=== PATIENT | female | born 1925 | race Caucasian/White ===

== ENCOUNTER 2016-07-18 19:13 | Inpatient (IN) | payer OTHER, MEDICARE ==
--- NOTE | 2016-07-18 20:03 | EDPHY ---
H & P Time Seen by Provider: 07/18/16 19:46 HPI/ROS: Chief complaint. Rectal bleeding HPI. 89-year-old female history of diverticular bleeding presents with copious rectal bleeding that began at 6:30 a.m. tonight. The last few days she has had some left lower quadrant crampy abdominal pain. No fever nausea or vomiting. Patient's son shows me a photo of copious blood bright red blood in the toilet tonight. ROS Constitutional. no fever/chills, no weakness Eyes. no problems with vision ENT. no sore throat, no nasal drainage Cardiovascular. no chest pain Respiratory. no shortness of breath, no cough Abdominal. Abdominal pain and rectal bleeding . no problems urinating MS. no calf pain/swelling, no neck/back pain, no joint pain Skin. no rash Lymph. no swollen glands Neuro. no headache, no dizziness, no difficulty walking or with speech Past Medical/Surgical History: Diverticulitis, hypertension, mastectomy, cataract surgery, GI bleed Social History: nonsmoker no alcohol Smoking Status: Never smoked Physical Exam: General Appearance: Alert well-developed female mild distress vital signs are stable Eyes: Pupils equal and round no pallor or injection. ENT, Mouth: Mucous membranes are moist. Respiratory: There are no retractions, lungs are clear to auscultation. Cardiovascular: Regular rate and rhythm. Gastrointestinal: Abdomen is soft and nontender, no masses, bowel sounds normal. Neurological: Awake and alert, sensory and motor exams grossly normal. Skin: Warm and dry, no rashes. Musculoskeletal: Neck is supple nontender. Extremities symmetrical, full range of motion. Psychiatric: Patient is oriented X 3, there is no agitation. Constitutional: Initial Vital Signs Temperature (C) 36.3 C 07/18/16 19:23 Heart Rate 92 07/18/16 19:23 Respiratory Rate 18 07/18/16 19:23 Blood Pressure 148/89 H 07/18/16 19:23 O2 Sat (%) 91 L 07/18/16 19:23 O2 Delivery Mode Room Air Allergies/Adverse Reactions: codeine [Codeine] Allergy (Unknown, Verified 06/20/13 15:36) Penicillins Allergy (Unknown, Verified 06/20/13 15:36) Home Medications: Medication Instructions Recorded Aspirin EC [Aspirin EC 81 mg (*)] 81 mg PO DAILY 07/18/16 Cholecalciferol Vit D3 [Vitamin D3 2,000 units PO DAILY 07/18/16 (*)] Hydrochlorothiazide [HCTZ (*)] 25 mg PO DAILY 07/18/16 Losartan Potassium [Cozaar 50 mg 50 mg PO DAILY 07/18/16 (*)] Magnesium Oxide [Magnesium Oxide 400 mg PO FR 07/18/16 400 mg (*)] Simvastatin [Zocor] 20 mg PO HS 07/18/16 Medical Decision Making - Diagnostics Imaging: CT abdomen and pelvis with IV contrast interpreted by me and discussed with Dr. Esquivel is consistent with diverticulitis. No evidence for abscess or perforation Procedures: IV normal saline. IV Flagyl and Cipro ED Course/Re-evaluation: On re-evaluation the patient remained stable. The patient and I discussed imaging and lab results. We discussed treatment plan including need for admission and further evaluation. She expresses understanding and agreement Differential Diagnosis: Patient has had previous diverticular bleeding. This is likely the source of her lower GI bleeding. I considered hemorrhoids, colon cancer as well - Data Points Laboratory Results: Laboratory Results 07/18/16 14:55 07/18/16 14:55 07/18/16 14:55 WBC 8.39 10^3/uL (3.80-9.50) RBC 4.55 10^6/uL (4.18-5.33) Hgb 13.5 g/dL (12.6-16.3) Hct 39.4 % (38.0-47.0) MCV 86.6 fL (81.5-99.8) MCH 29.7 pg (27.9-34.1) MCHC 34.3 g/dL (32.4-36.7) RDW 12.7 % (11.5-15.2) Plt Count 229 10^3/uL (150-400) MPV 9.9 fL (8.7-11.7) Neut % (Auto) 67.6 % (39.3-74.2) Lymph % (Auto) 23.8 % (15.0-45.0) [place] % (Auto) 6.8 % (4.5-13.0) Eos % (Auto) 0.6 % (0.6-7.6) Baso % (Auto) 0.5 % (0.3-1.7) Nucleat RBC Rel Count 0.0 % (0.0-0.2) Absolute Neuts (auto) 5.67 10^3/uL (1.70-6.50) Absolute Lymphs (auto) 2.00 10^3/uL (1.00-3.00) Absolute Monos (auto) 0.57 10^3/uL (0.30-0.80) Absolute Eos (auto) 0.05 10^3/uL (0.03-0.40) Absolute Basos (auto) 0.04 10^3/uL (0.02-0.10) Absolute Nucleated RBC 0.00 10^3/uL (0-0.01) Immature Gran % 0.7 % (0.0-1.1) Immature Gran # 0.06 10^3/uL (0.00-0.10) Sodium 133 L mEq/L (134-144) Potassium 3.5 mEq/L (3.5-5.2) Chloride 97 mEq/L (97-110) Carbon Dioxide 25 mEq/l (22-31) Anion Gap 11 mEq/L (8-16) BUN 20 mg/dL (7-23) Creatinine 0.7 mg/dL (0.6-1.0) Estimated GFR > 60 Glucose 122 H mg/dL (70-100) Calcium 9.6 mg/dL (8.5-10.4) Medications Given: Discontinued Medications Ciprofloxacin/Dextrose (Cipro 400 Mg (Premix)) 200 mls @ 200 mls/hr IV EDNOW ONE PRN Reason: Protocol Stop: 07/18/16 21:16 Last Admin: 07/18/16 20:43 Dose: 200 mls Metronidazole/Sodium Chloride (Flagyl 500 Mg (Premix)) 100 mls @ 100 mls/hr IV EDNOW ONE PRN Reason: Protocol Stop: 07/18/16 21:16 Last Admin: 07/18/16 23:18 Dose: 100 mls Sodium Chloride (Ns) 1,000 mls @ 0 mls/hr IV ONCE ONE PRN Reason: Wide Open Stop: 07/18/16 22:00 Last Admin: 07/18/16 22:03 Dose: 1,000 mls Departure - Departure Disposition: [facility] Inpatient Acute Clinical Impression: Diverticulosis of large intestine with hemorrhage Condition: Fair
[2016-07-18] MEDS ORDERED: CIPROFLOXACIN 400 MG/DEXTROSE 200 ML IV ONE (20:17)
[2016-07-18] MEDS ORDERED: IOPAMIDOL (ISOVUE-300) 100 ML BTL IV ONE (20:20)
[2016-07-18 20:26] LABS: % IMMATURE GRANULYOCYTES 0.7 % (0.0-1.1); ABSOLUTE IMMATURE GRANULOCYTES 0.06 10^3/uL (0.00-0.10); ADD DIFF? NO; ADD MORPH? NO; ADD SCAN? NO; ATYPICAL LYMPHOCYTE FLAG 0 (0-99); FRAGMENT RBC FLAG 0 (0-99); HEMATOCRIT 39.4 % (38.0-47.0); HEMOGLOBIN 13.5 g/dL (12.6-16.3); LEFT SHIFT FLG 0 (0-99); LIPEMIA HEMOLYSIS FLAG 90 (0-99); MEAN CELL HEMOGLOBIN 29.7 pg (27.9-34.1); MEAN CELL HEMOGLOBIN CONCENTR. 34.3 g/dL (32.4-36.7); MEAN CELL VOLUME 86.6 fL (81.5-99.8); MEAN PLATELET VOLUME 9.9 fL (8.7-11.7); PLATELET CLUMPS FLAG 0 (0-99); PLATELET COUNT 229 10^3/uL (150-400); RED BLOOD CELL COUNT 4.55 10^6/uL (4.18-5.33); RED CELL DISTRIBUTION WIDTH 12.7 % (11.5-15.2)
[2016-07-18 20:34] LABS: ANION GAP 11 mEq/L (8-16); CALCIUM 9.6 mg/dL (8.5-10.4); CARBON DIOXIDE 25 mEq/l (22-31); CHLORIDE 97 mEq/L (97-110); CREATININE 0.7 mg/dL (0.6-1.0); GLOMERULAR FILTRATION RATE > 60; GLUCOSE 122 mg/dL (70-100); POTASSIUM 3.5 mEq/L (3.5-5.2); SODIUM 133 mEq/L (134-144)
[2016-07-18] MEDS ORDERED: NS 1,000 ML IV ONE ×2 (21:59→23:54)
--- NOTE | 2016-07-18 22:06 | CT ---
CT Scan of the Abdomen and Pelvis (With Contrast) at 2111 hours History: Abdominal pain. Bloody stools. Comparison: CT February 2013 Technique: Axial computed tomographic images of the abdomen and pelvis were obtained with the unevent ful intravenous administration of 80 mL Isovue-300 contrast. No oral or rectal contrast which limits the study. Dose reduction techniques were utilized. CT Abdomen Findings: Lung bases: No pleural effusion. Liver: Normal. Biliary system: No obstruction. Spleen: Normal. Pancreas: Atrophy. Adrenals: Normal. Kidneys: No obstruction or solid masses.. Right kidney lower pole 7.7 x 6.5 cm cyst Abdominal Aorta: Atherosclerotic aorta without aneurysm. No bowel obstruction. Diffuse diverticulosis especially descending and sigmoid colon. Mild wall thick ening and pericolonic inflammatory changes and proximal descending colon which suggest diverticulitis , less prominent than previous study. No bowel obstruction. Duodenal diverticulum also noted. CT Pelvis Findings: No pelvic fluid collections or abscess. Moderate fluid in the rectosigmoid colon with diverticulosis. No diverticulitis. Severe degenerative disease lumbar spine especially from L1-L 2 through L4-L5 with disk space narrowing, vacuum disk phenomenon and osteophytes with bilateral face t arthropathy resulting in multilevel mild to moderate central canal stenosis. Impression: 1. Probable mild diverticulitis proximal descending colon. 2. Diffuse diverticulosis coli. 3. Atherosclerotic aorta without aneurysm. 4. Right renal cyst. 5. Atrophic pancreas. 6. Degenerative lumbar spine. Findings and recommendations discussed with Emergency Department physician, EDELMIRA BACA at 2130 h our, 07/18/2016. Final report concurs with initial preliminary interpretation.
[2016-07-18] MEDS ORDERED: ACETAMINOPHEN 325 MG TAB PO PRN (22:26)
[2016-07-18] MEDS ORDERED: ONDANSETRON DISINTEGRATING 4 MG TAB PO PRN (22:26)
[2016-07-18] MEDS ORDERED: ONDANSETRON 4 MG/2 ML VIAL IVP PRN (22:26)
[2016-07-19 00:21] LABS: HEMATOCRIT 32.1 % (38.0-47.0); HEMOGLOBIN 10.9 g/dL (12.6-16.3)
[2016-07-19] MEDS ORDERED: GOLYTELY 4000 ML BTL PO ONE (00:28)
[2016-07-19 00:40] LABS: APTT 24.7 SEC (23.0-38.0); INR 1.06 (0.83-1.16); PROTIME(PATIENT) 13.7 SEC (12.0-15.0)
[2016-07-19] MEDS: PANTOPRAZOLE SODIUM 40 MG in NS 100 ML IV SCH ×3 (01:03→20:51)
[2016-07-19 01:18] LABS: ALANINE AMINOTRANSFERASE 52 IU/L (9-52); ALBUMIN 3.3 g/dL (3.5-5.0); ALKALINE PHOSPHATASE 52 IU/L (38-126); ANION GAP 11 mEq/L (8-16); ASPARTATE AMINOTRANSFERASE 31 IU/L (14-46); BILIRUBIN,TOTAL 0.8 mg/dL (0.1-1.4); CALCIUM 8.2 mg/dL (8.5-10.4); CARBON DIOXIDE 21 mEq/l (22-31); CHLORIDE 103 mEq/L (97-110); CREATININE 0.7 mg/dL (0.6-1.0); GLOMERULAR FILTRATION RATE > 60; GLUCOSE 161 mg/dL (70-100); POTASSIUM 3.3 mEq/L (3.5-5.2); SODIUM 135 mEq/L (134-144); TOTAL PROTEIN 5.7 g/dL (6.3-8.2)
--- NOTE | 2016-07-19 01:28 | GHP ---
[f rep st] HISTORY AND PHYSICAL DATE OF ADMISSION: 07/18/2016 CHIEF COMPLAINT: Hematochezia, presyncope. HISTORY: a pleasant 89-year-old female with history of 3 diverticular bleeds in the past who presented with BRBPR. Patient was in normal state of health until this evening, then had a large bloody BM at 6:30pm. She can usually tell when these episodes are coming, because she has cramping in abdomen. She felt this last week, thus put herself on a clear diet and then started eating regularly 2 days ago. Currently, denies any abdominal pain. No nausea, vomiting , diarrhea. No fever, chills, or sweats. She has been eating a regular diet for the last 2 days. Since being in the hospital, she has had 3 more large BMs with bright red blood. I was called bedside for a near-syncopal event; she felt very dizzy, clammy and nauseated. Denies chest pain or shortness of breath. She been taking ibuprofen 100mg, 3-4 times a day for the past 6-8 months for knee arthritis. Stopped 2-3 days ago, because she saw a commercial stating it can hurt her kidneys. REVIEW OF SYSTEMS: I completed a 10-point review of systems, negative except as noted in HPI. PAST MEDICAL HISTORY: 1. Diverticulitis, diverticular bleed x3. 2. Hypertension. 3. History of breast cancer. 4. Recurrent UTIs. 5. Hyperlipidemia. PAST SURGICAL HISTORY: 1. Tubal ligation. 2. Mastectomy. SOCIAL HISTORY: Lives with her son in [place]. No illicits, alcohol or tobacco. FAMILY HISTORY: Mother with MDS. Father had an accident, was paraplegia. ALLERGIES: Penicillin, codeine. MEDICATIONS: 1. Ibuprofen 100 mg 3-4 tabs daily for the past 6-8 months. 2. Aspirin 81 mg. 3. Magnesium oxide 400 mg p.o. daily. 4. Zocor 20 mg daily. 5. Losartan 50 mg daily. 6. Hydrochlorothiazide 25 mg daily. 7. Vitamin D3, 2000 units daily. PHYSICAL EXAM: VITAL SIGNS: 148/89 at time of admission. Subsequent pressure 92/61. At the time I saw the patient, she was 92/53, with a heart rate of 76- 100, afebrile, respirations 16, 95% on room air. GENERAL: The patient is pale , mildly diaphoretic, in no acute distress. HEENT: PERRLA. Conjunctival pallor. Oropharynx clear. CARDIOVASCULAR: Regular rate and rhythm. No murmurs, gallops, or rubs. LUNGS: Clear to auscultation bilaterally. ABDOMEN : Soft, nontender, nondistended. Positive bowel sounds. : No suprapubic tenderness. MUSCULOSKELETAL: 5/5 upper and lower extremity strength. NEURO: 2 through 12 intact. PSYCH: Alert and oriented x3. LABORATORY: WBC 8.39, hemoglobin 13, hematocrit 39, platelets 229. Repeat was 10 and 32. Coags are within normal. Lactic acid is 2. Sodium 133, potassium 3.5, chloride 97, carbon dioxide 25, creatinine 0.7, glucose 122. Repeat BMP with liver panel is pending at the time of this dictation. ASSESSMENT/PLAN: 1. Acute blood loss anemia: due to LGIB. 2. Hematochezia: concern for recurrent diverticular bleed. CT showed moderate fluid in the rectosigmoid colon with diverticulosis, possible diverticulitis in descending colon. Upon my initial encounter, she is symptomatic with near- syncope, hypotension, a significant drop of hematocrit. Immediate transfer to ICU for stabilization. Treating medically with IVFs and 2 units RBCs. Start IV PPI with significant NSAID use. I contacted Dr. Maya with Gastroenterology and will bowel prep for endoscopy in morning. Ideally, if there is further bleeding, they can localize site for IR embolization if needed. Dr. Stevens with Interventional Radiology is aware of patient. Tagged RBC scan ordered. I spoke with patient and her son in regards to interventions and is surgery is the least desirable option. 3. Hypotension: secondary to acute blood loss anemia: Hold antihypertensives. 4. Hyperlipidemia: Statin. 5. History of breast cancer, status post mastectomy. 6. Diet: N.p.o. 7. DVT prophylaxis: SCDs. DISPOSITION: The patient warrants an ICU admission given symptomatic acute blood-loss anemia, warranting IV fluids and blood transfusion. Critical time spent: 75 minutes, in which 25 minutes was spent at bedside, remaining coordinating care with GI and Interventional Radiology. /[id number]/MODL MTDD
[2016-07-19] MEDS ORDERED: PROTOCOL CALCIUM 1 DOSE IV PRN (01:57)
[2016-07-19] MEDS ORDERED: PROTOCOL MAGNESIUM 1 DOSE IV PRN (01:57)
[2016-07-19] MEDS ORDERED: PROTOCOL POTASSIUM 1 DOSE MISC PRN (01:57)
[2016-07-19] MEDS ORDERED: POTASSIUM CL 10 MEQ TAB PO ONE (02:05)
[2016-07-19] MEDS ORDERED: NS 1,000 ML IV SCH (03:45)
[2016-07-19 05:33] LABS: IONIZED CALCIUM 1.06 MMOL/L (1.12-1.30)
[2016-07-19 06:00] LABS: ANION GAP 11 mEq/L (8-16); CALCIUM 8.1 mg/dL (8.5-10.4); CARBON DIOXIDE 22 mEq/l (22-31); CHLORIDE 102 mEq/L (97-110); CREATININE 0.7 mg/dL (0.6-1.0); GLOMERULAR FILTRATION RATE > 60; GLUCOSE 129 mg/dL (70-100); SODIUM 135 mEq/L (134-144)
[2016-07-19 06:16] LABS: HEMATOCRIT 36.8 % (38.0-47.0); HEMOGLOBIN 12.7 g/dL (12.6-16.3)
[2016-07-19] MEDS ORDERED: CALCIUM GLUCONATE 50 ML IV ONE (06:28)
[2016-07-19 07:24] LABS: MAGNESIUM 1.7 mg/dL (1.6-2.3)
[2016-07-19] MEDS ORDERED: MAGNESIUM SULF 1 GM/DEXTROSE 100 ML IV ONE (07:54)
[2016-07-19] MEDS ORDERED: CHOLECALCIFEROL VIT D3 1,000 UNITS TAB PO SCH (09:00)
--- NOTE | 2016-07-19 10:03 | GCON ---
[f rep st] CONSULTATION CHIEF COMPLAINT: An 89-year-old woman with hematochezia. HISTORY OF PRESENT ILLNESS: I have been asked to see this patient in consultation. She is a very pleasant 89-year-old woman with a history of diverticulosis and previous diverticular bleeding. Her history dates back to 2011. She had presented with a lower GI bleed at that time. She had undergone a colonoscopy with the finding of diverticulosis involving the sigmoid colon as well as ascending colon. She did have a bleeding scan that did not show any active bleeding. The bleeding stopped spontaneously. She reports at least 2 other episodes of lower GI bleeding again in 2011 and then 2012. During one of her episodes of GI bleeding she had undergone a visceral angiography with no provocation of bleeding. 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 She is still bleeding spontaneously. She was well until this admission. She had presented to the emergency department after an episode of bleeding at home. She felt well at home. Had one episode of bright red blood per rectum. She did feel somewhat lightheaded in the emergency department. She was hemodynamically stable. She did have a slight drop in her hematocrit. Her hematocrit was 39.4 on admission, dropped to 32.1. Post transfusion was 36.8. She has been hemodynamically stable. She did also have a CT scan in the emergency room. CT scan showed diverticulosis involving the sigmoid colon with some evidence of diverticulitis. However, patient is not having abdominal pain or discomfort. Asked to see patient for further evaluation. PAST MEDICAL HISTORY: Hypertension and hypercholesterolemia. PAST SURGICAL HISTORY: Mastectomy left breast 1981. She had a previous left leg surgery for a benign tumor. MEDICATIONS PRIOR TO ADMISSION: Ibuprofen, aspirin, magnesium oxide, Zocor, losartan, hydrochlorothiazide and vitamin D3. ALLERGIES: Penicillin and codeine. SOCIAL HISTORY: She lives with her son in [place]. Does drink alcohol on occasion. She is a nonsmoker. FAMILY HISTORY: Negative as it pertains to chief complaint. Her mother had breast cancer. REVIEW OF SYSTEMS: Negative 10 systems other than mentioned HPI. PHYSICAL EXAM: VITAL SIGNS: 117/63, heart rate of 83, 91% sat, 36.3. GENERAL : A very pleasant woman in no acute distress. HEENT: Normocephalic, atraumatic. EOMI. Mucous membranes moist. LUNGS: Clear. CARDIAC: Normal S1 , S2 without murmur. ABDOMEN: Soft, benign, nontender. No hepatosplenomegaly. EXTREMITIES: Without clubbing, cyanosis, edema. Scar in the left lower extremity from patient's prior surgery. SKIN: Warm, dry and intact. NEURO: Nonfocal. Cranial nerves 2-12 are intact; however, she has neurosensory hearing loss. PSYCHIATRIC: Normal affect. LABORATORY DATA: Hematocrit 36.8. PT of 13.7, INR of 1.06 and PTT of 24.7. Serum chemistries: Serum sodium 135, potassium 4.0, chloride 102, CO2 22, BUN of 16, creatinine 0.7. IMPRESSION: An 89-year-old woman with a history of diverticulosis involving the left and right colon. Patient with prior history of diverticular bleeding in possibly 2010, 2011, questionable 2012. Each episode was self-limited. She had a provocative visceral angiogram without provocation of bleeding. The patient currently is hemodynamically stable with no signs or symptoms of acute bleeding. Given her age and that there are no signs of active bleeding at present, would not proceed with colonoscopy at this time. RECOMMENDATIONS: 1. Clear liquid diet. 2. Serial H and H. 3. If any recurrent bleeding during the next 24 hours, we recommend an RBC tagged bleeding scan and potential angiography by IR. We will follow with you. /[id number]/MODL MTDD
--- NOTE | 2016-07-19 14:23 | NM ---
Nuclear Medicine GI Bleeding Study Clinical History: 89-year-old female inpatient with GI bleeding of unknown etiology, and a history of colonic diverticulosis. Technique: The patient's red blood cells were labeled with 19.9 mCi of Tc 99m Ultra-Tag. Immediate im aging is performed of the abdomen and pelvis in the AP projection. 30 minutes of serial imaging is pe rformed over the abdomen and pelvis, and reviewed in the cine sequence. Delayed imaging was performed over the abdomen and pelvis the 60 minute time frame. Images are also reviewed in a cine fashion usi [employer] software. Comparison Studies: Nuclear medicine GI bleeding studies dated 06/06/2011 and 06/20/2011. Findings: As on the previous study, there is normal aortoiliac vascular uptake, and normal radiotrace r accumulation within the kidneys, liver, spleen, and bladder. There is no localized radiotracer accu mulation or abnormal migration of uptake to suggest an active bleed. Impression: There is no scintigraphic evidence of active GI bleeding over 1 hour timeframe. Should th ere be a recurrence, the patient can return to the department for further imaging.
[2016-07-19 15:16] LABS: HEMATOCRIT 35.2 % (38.0-47.0); HEMOGLOBIN 12.2 g/dL (12.6-16.3)
[2016-07-19] MEDS: CHOLECALCIFEROL VIT D3 1,000 UNITS TAB PO SCH (16:00)
--- NOTE | 2016-07-19 16:13 | HOSPPROG ---
Hospitalist Progress Note Assessment/Plan: 89 yo F with hx of prior GI bleed pw acute diverticulitis and gi bleed # acute GI bleed: GI consulted, plan for tagged rbc study today, holding off on colonoscopy for now. Likely related to diverticultis and diverticular bleed # mild diverticulitis with acute gi bleed: as above, HD stable and w/o significant pain, continued on cipro and flagyl # acute blood loss anemia: in setting of above, transfused 2 units prbc # chronic medical issues: HLD, h/o breast cancer # dispo: IP status, high risk given significant active bleed requiring transfusion Patient new to my care. old records reviewed and summarized as above. Care plan reviewed with Dr. Cevallos and multidisciplinary care team. Further hx obtained from daughter in law present at bedside. Subjective: no significant overnight events, patient currently feeling ok not dizzy etc, is hungry Objective: Vital Signs Temp Pulse Resp BP Pulse Ox 36.5 C 71 17 129/63 H 91 L 07/19/16 12:00 07/19/16 14:00 07/19/16 14:00 07/19/16 14:00 07/19/16 14:00 Laboratory Results 07/19/16 15:00 07/19/16 05:20 07/18/16 07/19/16 07/20/16 05:59 05:59 05:59 Intake Total 4255 2000 Output Total 1350 900 Balance 2905 1100 PT 13.7 SEC (12.0-15.0) 07/19/16 00:30 INR 1.06 (0.83-1.16) 07/19/16 00:30 awake alert eldery anicteric op clear rrr no mrg cta b soft nt nd no cce warm dry well perfused oriented appropriate ICD10 Worksheet Patient Problems: Problems Problem Status Diagnosed Diverticular hemorrhage Acute Anemia due to blood loss Active Lower gastrointestinal hemorrhage Active
[2016-07-19 18:26] LABS: HEMATOCRIT 32.7 % (38.0-47.0); HEMOGLOBIN 11.4 g/dL (12.6-16.3)
[2016-07-19 18:56] LABS: POTASSIUM 3.1 mEq/L (3.5-5.2)
--- NOTE | 2016-07-19 19:36 | GCON ---
[f rep st] CONSULTATION CRITICAL CARE CONSULTATION. DATE OF CONSULTATION: 07/19/2016 REASON FOR CONSULTATION: Diverticular bleed. HISTORY: The patient is a very pleasant 89-year-old with a history of previous diverticular bleeds. She presented with bright red blood per rectum and associated lightheadedness. She was seen by [facility] roenterology. A tagged red blood cell study was done which was negative. However, the patient likel y had stopped bleeding at this time. Hematocrit has been relatively stable. She has not required bl ood. Currently, she is doing well. She denies any abdominal pain. She is taking some clear liquids . She has apparently bled from diverticula 3 times in the past. Two previous tagged red blood studies have been unremarkable. She is on no anticoagulants. She has taken some ibuprofen lately. She is a lso on 1 baby aspirin per day. PAST MEDICAL HISTORY: Remarkable for diverticular disease as outlined above, hypertension, hyperlipi demia, distant history of breast cancer, and recurrent UTIs. SOCIAL HISTORY: The patient lives with her son in [place]. Alcohol and tobacco are denied. FAMILY HISTORY: Noncontributory. DRUG ALLERGIES: Penicillin, codeine. REVIEW OF SYSTEMS: Negative except as mentioned above. There is no history of heart disease, thromb oembolic disease, or other problems. She has had a history of urinary tract infections in the past. PHYSICAL EXAMINATION: GENERAL: Reveals a pleasant, elderly woman who is sitting comfortably in bed. She has no complaints. Blood pressure is approximately 125/60, heart rate 75 with sinus rhythm on the monitor. On room air, saturations are in the mid 90s. Respiratory rate is 16. She is afebrile. HEENT: Unremarkable for lymphadenopathy or thyromegaly. Mucous membranes are moist. There is no jugular venous distention. CHEST: Clear bilaterally. HEART: Regular in rate and rhythm. ABDOMEN: Soft and nontender. Bowel sounds are present. She states that when she passes stools, she still h as some blood which is getting darker. There is no further bright red blood. EXTREMITIES: Unremark able for edema, cords, or tenderness. NEUROLOGIC: Examination is intact. LABORATORY: Hematocrit is 32.7, essentially stable after a hematocrit of 32 at midnight. Admission hematocrit was 39.4. PT and PTT on admission were normal. Basic metabolic panel is within normal li mits with the exception of a mildly low calcium. ASSESSMENT: 1. Diverticular bleed. This appears to be transient. Her bleeds in the past have been transient. Tagged red blood cell study is negative. Gastroenterology is following. Hematocrit is stable. 2. History of other medical problems as outlined above, stable. PLAN AND RECOMMENDATIONS: The patient will be kept in the intensive care unit and monitored overnigh t. Serial hematocrits will be checked. She will be kept on a clear liquid diet in case endoscopy or other procedures are needed if she rebleeds. Further plans and recommendations will be made based on her progress over the next 12-24 hours. /[id number]/MODL
[2016-07-19] MEDS: ATORVASTATIN CALCIUM 10 MG TAB PO SCH (20:51)
[2016-07-19] MEDS ORDERED: NON-FORMULARY NEW DRUG (Simvastatin [Zocor] 20 MG) PO SCH (21:00)
[2016-07-20 05:26] LABS: IONIZED CALCIUM 1.07 MMOL/L (1.12-1.30)
[2016-07-20] MEDS ORDERED: CALCIUM GLUCONATE 50 ML IV ONE (05:42)
[2016-07-20 05:43] LABS: HEMATOCRIT 31.1 % (38.0-47.0); HEMOGLOBIN 10.6 g/dL (12.6-16.3)
[2016-07-20 06:01] LABS: MAGNESIUM 1.6 mg/dL (1.6-2.3); POTASSIUM 3.7 mEq/L (3.5-5.2)
--- NOTE | 2016-07-20 09:17 | SOAPPROG ---
SOAP Progress Note Assessment/Plan: Assessment: 1. Diverticular bleed, stopped. No signs of recurrent bleeding and RBC tagged study negative 2. Hypertension Plan: 1. Advance diet to regular 2. May transfer out of the ICU to medical floor 3. If stable ok for discharge home tomorrow 07/20/16 09:13 Subjective: CC: LGI Bleed 89 year old woman with history of recurrent LGI bleeding secondary to diverticulosis. Patient with known diverticulosis of the right and left colon. Previous provocative angiography negative. RBC tagged study on this visit negative. Patient with out signs or symptoms of bleeding. She is hungry. Objective: Vital Signs Temp Pulse Resp BP Pulse Ox 36.8 C 72 14 100/73 94 07/19/16 20:00 07/20/16 06:00 07/20/16 06:00 07/20/16 06:00 07/20/16 06:00 Laboratory Results 07/20/16 05:15 07/20/16 05:15 07/19/16 07/20/16 07/21/16 05:59 05:59 05:59 Intake Total 4255 4872 Output Total 1350 1050 Balance 2905 3822 PT 13.7 SEC (12.0-15.0) 07/19/16 00:30 INR 1.06 (0.83-1.16) 07/19/16 00:30 Generic Name Dose Route Start Last Admin Trade Name Freq PRN Reason Stop Dose Admin Acetaminophen 650 mg 07/18/16 22:26 Tylenol PO 01/14/17 22:25 Q4HRS PRN Pain, Mild/Fever, Can Take PO Atorvastatin Calcium 10 mg 07/19/16 21:00 07/19/16 20:51 Lipitor PO 01/15/17 20:59 10 mg HS BOOM Administration Calcium Gluconate 1 dose 07/19/16 01:57 Protocol Calcium IV 01/15/17 01:56 AD PRN Pt on Electrolyte Protocol Protocol Cholecalciferol 2,000 units 07/19/16 09:00 07/19/16 16:00 Vitamin D PO 01/15/17 08:59 2,000 units DAILY BOOM Administration Pantoprazole Sodium 40 mg/ 100 mls @ 200 mls/hr 07/18/16 23:45 07/19/16 20:51 Sodium Chloride IV 01/14/17 23:44 100 mls BID BOOM Administration Sodium Chloride 1,000 mls @ 100 mls/hr 07/19/16 03:45 Ns IV 01/15/17 03:44 CONT BOOM Magnesium Sulfate 1 dose 07/19/16 01:57 Protocol Magnesium IV 01/15/17 01:56 AD PRN Pt on Electrolyte Protocol Protocol Ondansetron HCl 4 mg 07/18/16 22:26 07/19/16 01:07 Zofran IVP 01/14/17 22:25 4 mg Q4HRS PRN Administration Nausea/Vomiting, Can't Take PO Ondansetron HCl 4 mg 07/18/16 22:26 Zofran Odt PO 01/14/17 22:25 Q4HRS PRN Nausea/Vomiting, Use 1st Potassium Chloride 1 dose 07/19/16 01:57 Protocol Potassium MISC 01/15/17 01:56 AD PRN Pt on Electrolyte Protocol Protocol Discontinued Medications Generic Name Dose Route Start Last Admin Trade Name Freq PRN Reason Stop Dose Admin Heparin Sodium (Porcine) Confirm 07/19/16 09:45 Heparin Lock Flush Administered 07/19/16 09:46 Dose 500 unit IVP .STK-MED ONE Ciprofloxacin/Dextrose 200 mls @ 200 mls/hr 07/18/16 20:17 07/18/16 20:43 Cipro 400 Mg (Premix) IV 07/18/16 21:16 200 mls EDNOW ONE Administration Protocol Metronidazole/Sodium Chloride 100 mls @ 100 mls/hr 07/18/16 20:17 07/18/16 23: 18 Flagyl 500 Mg (Premix) IV 07/18/16 21:16 100 mls EDNOW ONE Administration Protocol Sodium Chloride 1,000 mls @ 0 mls/hr 07/18/16 21:59 07/18/16 22:03 Ns IV 07/18/16 22:00 1,000 mls ONCE ONE Administration Wide Open Sodium Chloride 1,000 mls @ 3,000 mls/hr 07/18/16 23:54 07/18/16 23:30 Ns IV 07/19/16 00:13 1,000 mls ONCE ONE Administration Calcium Gluconate 50 mls @ 100 mls/hr 07/19/16 06:28 07/19/16 08:05 Calcium Gluconate 1 Gm (Premix) IV 07/19/16 06:57 50 mls ONCE ONE Administration Magnesium Sulfate/Dextrose 100 mls @ 100 mls/hr 07/19/16 07:54 07/19/16 08:58 Magnesium Sulf 1 Gm (Premix) IV 07/19/16 08:53 100 mls ONCE ONE Administration Calcium Gluconate 50 mls @ 100 mls/hr 07/20/16 05:42 07/20/16 06:28 Calcium Gluconate 1 Gm (Premix) IV 07/20/16 06:11 50 mls ONCE ONE Administration Iopamidol Confirm 07/18/16 20:20 Isovue-300 Administered 07/18/16 20:21 Dose 100 ml IV .STK-MED ONE Polyethylene Glycol/Electrolytes 4,000 ml 07/19/16 00:28 07/19/16 02:20 Golytely PO 07/19/16 00:29 4,000 ml ONCE ONE Administration Potassium Chloride 10 - 40 meq 07/19/16 02:05 07/19/16 02:19 Klor-Con PO 07/19/16 02:06 30 meq ONCE ONE Administration Protocol Physical Exam - Physical Exam General Appearance: alert, no apparent distress Respiratory: lungs clear, normal breath sounds Cardiac/Chest: regular rate, rhythm Abdomen: normal bowel sounds, non-tender, soft Skin: normal color, warm/dry Neuro/Psych: no motor/sensory deficits, alert, normal mood/affect ICD10 Worksheet Patient Problems: Problems Problem Status Diagnosed Diverticular hemorrhage Acute Anemia due to blood loss Active Lower gastrointestinal hemorrhage Active
[2016-07-20] MEDS ORDERED: MAGNESIUM SULF 1 GM/DEXTROSE 100 ML IV ONE (10:31)
[2016-07-20] MEDS ORDERED: POTASSIUM CL 10 MEQ TAB PO ONE ×2 (10:32→22:02)
[2016-07-20] MEDS: CHOLECALCIFEROL VIT D3 1,000 UNITS TAB PO SCH (10:32)
[2016-07-20] MEDS: PANTOPRAZOLE SODIUM 40 MG in NS 100 ML IV SCH ×2 (10:32→20:35)
--- NOTE | 2016-07-20 15:21 | HOSPPROG ---
Hospitalist Progress Note Assessment/Plan: 89 yo F with hx of prior GI bleed pw acute diverticulitis and gi bleed # acute GI bleed: GI consulted, plan for tagged rbc study today, holding off on colonoscopy for now. Likely related to diverticultis and diverticular bleed. Seems to have resolved. If h/h stable overnight and no e/o recurrent bleed can dc in am # mild diverticulitis with acute gi bleed: as above, HD stable and w/o significant pain, continued on cipro and flagyl and will continue for at least 7 days total # acute blood loss anemia: in setting of above, transfused 2 units prbc and stable since then # chronic medical issues: HLD, h/o breast cancer # dispo: IP status, high risk given significant active bleed requiring transfusion Reviewed care plan with patients niece present at bedside. Subjective: no significant overnight events, patient feeling well Objective: Vital Signs Temp Pulse Resp BP Pulse Ox 36.6 C 64 18 155/79 H 90 L 07/20/16 12:00 07/20/16 12:00 07/20/16 12:00 07/20/16 12:00 07/20/16 12:00 Laboratory Results 07/20/16 05:15 07/20/16 05:15 07/19/16 07/20/16 07/21/16 05:59 05:59 05:59 Intake Total 4255 4872 Output Total 1350 1050 Balance 2905 3822 PT 13.7 SEC (12.0-15.0) 07/19/16 00:30 INR 1.06 (0.83-1.16) 07/19/16 00:30 awake alert eldery anicteric op clear rrr no mrg cta b soft nt nd no cce warm dry well perfused oriented appropriate ICD10 Worksheet Patient Problems: Problems Problem Status Diagnosed Diverticular hemorrhage Acute Anemia due to blood loss Active Lower gastrointestinal hemorrhage Active
[2016-07-20] MEDS: ATORVASTATIN CALCIUM 10 MG TAB PO SCH (20:36)
[2016-07-20 21:48] LABS: POTASSIUM 3.6 mEq/L (3.5-5.2)
[2016-07-21 05:21] LABS: IONIZED CALCIUM 1.08 MMOL/L (1.12-1.30)
[2016-07-21 05:22] LABS: % IMMATURE GRANULYOCYTES 0.7 % (0.0-1.1); ABSOLUTE IMMATURE GRANULOCYTES 0.06 10^3/uL (0.00-0.10); ADD DIFF? NO; ADD MORPH? NO; ADD SCAN? NO; ATYPICAL LYMPHOCYTE FLAG 20 (0-99); FRAGMENT RBC FLAG 0 (0-99); HEMOGLOBIN 10.6 g/dL (12.6-16.3); LEFT SHIFT FLG 0 (0-99); LIPEMIA HEMOLYSIS FLAG 90 (0-99); MEAN CELL HEMOGLOBIN CONCENTR. 34.2 g/dL (32.4-36.7); MEAN CELL VOLUME 87.8 fL (81.5-99.8); MEAN PLATELET VOLUME 9.6 fL (8.7-11.7); PLATELET CLUMPS FLAG 0 (0-99); PLATELET COUNT 151 10^3/uL (150-400); RED BLOOD CELL COUNT 3.53 10^6/uL (4.18-5.33); RED CELL DISTRIBUTION WIDTH 14.1 % (11.5-15.2)
[2016-07-21 05:31] LABS: MAGNESIUM 1.6 mg/dL (1.6-2.3); POTASSIUM 3.8 mEq/L (3.5-5.2)
[2016-07-21] MEDS ORDERED: POTASSIUM CL 10 MEQ TAB PO ONE (07:24)
[2016-07-21] MEDS ORDERED: MAGNESIUM SULF 1 GM/DEXTROSE 100 ML IV ONE (07:24)
[2016-07-21] MEDS: PANTOPRAZOLE SODIUM 40 MG in NS 100 ML IV SCH ×2 (07:38→07:43)
[2016-07-21] MEDS: CHOLECALCIFEROL VIT D3 1,000 UNITS TAB PO SCH (07:39)
[2016-07-21 08:03] VITALS: BP 178/93; PULSE 80; RESP 18; TEMP 98; O2SAT 95
[2016-07-21] MEDS ORDERED: CALCIUM GLUCONATE 50 ML IV ONE (09:03)
--- NOTE | 2016-07-21 09:11 | HOSPPROG ---
Hospitalist Progress Note Assessment/Plan: 89 yo F with hx of prior GI bleed pw acute diverticulitis and gi bleed. Today is my first encounter with the patient/chart reviewed. # acute GI bleed: * tagged study is negative * likely r/t diverticular bleed * h/h stable # mild diverticulitis with acute gi bleed: cipro and flagyl and will continue for 7 days total # acute blood loss anemia: in setting of above, transfused 2 units prbc and stable since then # chronic medical issues: HLD, h/o breast cancer # dispo: dc home Subjective: Romana is feeling much better today/no complaints. Objective: Vital Signs Temp Pulse Resp BP Pulse Ox 36.7 C 80 18 178/93 H 95 07/21/16 08:01 07/21/16 08:01 07/21/16 08:01 07/21/16 08:01 07/21/16 08:01 Laboratory Results 07/21/16 05:15 07/21/16 05:15 07/20/16 07/21/16 07/22/16 05:59 05:59 05:59 Intake Total 4872 Output Total 1050 Balance 3822 PT 13.7 SEC (12.0-15.0) 07/19/16 00:30 INR 1.06 (0.83-1.16) 07/19/16 00:30 - Physical Exam Constitutional: no apparent distress, appears nourished, not in pain Eyes: PERRL Ears, Nose, Mouth, Throat: hearing normal Cardiovascular: regular rate and rhythym Respiratory: no respiratory distress Gastrointestinal: normoactive bowel sounds, soft, non-tender abdomen Skin: warm Musculoskeletal: no muscle tenderness Neurologic: AAOx3 Psychiatric: interacting appropriately ICD10 Worksheet Patient Problems: Problems Problem Status Diagnosed Diverticular hemorrhage Acute Anemia due to blood loss Active Lower gastrointestinal hemorrhage Active
--- NOTE | 2016-07-21 13:28 | GDS ---
[f rep st] DISCHARGE SUMMARY DISCHARGE DIAGNOSES: 1. Acute gastrointestinal bleed/diverticular bleed. 2. Mild diverticulitis. 3. Acute blood loss anemia. 4. Chronic medical issues. CONSULTATIONS DURING HER STAY: 1. Dr. Karan Maya. 2. Dr. Cristóbal Cevallos. BRIEF HISTORY: The patient is a very sweet 89-year-old female with a history of 3 diverticular bleeds in the past, who presented with hematochezia and presyncopal symptoms. She was in her normal state of health until she had a large bloody bowel movement. She put herself on a clear liquid diet prior to admission out of concerns of having diverticulitis. She had a CT that showed moderate fluid in the rectosigmoid colon with diverticulosis, possible diverticulitis in descending colon. She was admitted for further care. She was treated with 2 units of packed red blood cells and a PPI. She was seen and evaluated by Gastroenterology, and she had a GI bleeding study performed that showed no evidence of active GI bleeding. Today, her vital signs are stable. Hemoglobin and hematocrit are stable. She will be discharged home and follow up with her primary care provider and get repeat labs next week. HOSPITAL COURSE PER PROBLEM: 1. Acute GI bleed. Her Tag study is negative. This is likely related to a diverticular bleed. H and H are stable. She will get a repeat H and H this next Sunday. 2. Mild diverticulitis. Reviewed this with Dr. Maya. For now, will not treat since she is having no pain and her white blood cell count is stable. 3. Acute blood loss anemia. She was given 2 units of packed red blood cells. PENDING LABS AND TEST: None. CONDITION AT DISCHARGE: Stable. Blood pressure is 178/93, heart rate is 80, respiratory rate is 18, O2 saturation on room air 95%, temperature 36.7 Celsius. MEDICATIONS AT DISCHARGE: Please see the EMR. DISCHARGE INSTRUCTIONS: 1. I am recommending that she hold her aspirin for the next 7 days until she talks to her primary care provider. 2. Take Protonix for the next month. 3. Get her hemoglobin and hematocrit checked on Sunday, July. Greater than 30 minutes discharging and coordinating care. /[id number]/MODL MTDD
== END 2016-07-21 11:56 | disposition home or self-care (01) | DRG 378 ==
LOC: F3E 23:31 → F2N 07-19 00:50 → F3E 07-20 11:13
PROVIDERS: ADMIT Internal Medicine; ATTEND Internal Medicine
PROC: 30233N1 Transfusion of Nonautologous Red Blood Cells into Peripheral Vein, Percutaneous Approach (ICD-10-PCS; principal; 2016-07-19)
DX: K57.33 Diverticulitis of large intestine without perforation or abscess with bleeding (principal); D62 Acute posthemorrhagic anemia; I10 Essential (primary) hypertension; Z88.0 Allergy status to penicillin; Z85.3 Personal history of malignant neoplasm of breast; E78.5 Hyperlipidemia, unspecified; Z87.440 Personal history of urinary (tract) infections
CPT/HCPCS: 96374; A9560; J0610; J0744; J2405; J3475; P9016; Q9967